=== PATIENT | female | born 1950 | race Caucasian/White ===

== ENCOUNTER 2024-07-05 19:50 | Inpatient (IN) | payer OTHER ==
[~2024-07-05] VITALS: Ht 162.6 cm; Wt 94.1 kg
[2024-07-05] MEDS: AZITHROMYCIN 500MG/250ML 250 ML IV NR (02:45)
[2024-07-05] MEDS: MEROPENEM 1G/100ML IV SCH (05:35)
[2024-07-05] MEDS: VANCOMYCIN 1.25GM PMX (XELLIA) 250 ML IV NR (06:30)
[2024-07-05] MEDS: CEFTRIAXONE 1GM/50ML 50 ML IV ONE (21:00)
[2024-07-05] MEDS: SODIUM CHLORIDE 0.9% 1000ML BAG (SEPSIS BOLUS) IV ONE (21:00)
[2024-07-05 21:06] LABS: CHLORIDE 106 mEq/L (98-107); POTASSIUM 4.7 mEq/L (3.5-5.1); SODIUM 136 mEq/L (136-145)
[2024-07-05 21:07] LABS: CALCIUM 8.6 mg/dL (8.7-10.4); CARBON DIOXIDE 23 mEq/L (21-32)
[2024-07-05 21:11] LABS: HEMATOCRIT. 36.8 % (36.0-48.0); HEMOGLOBIN. 11.9 g/dL (12.0-16.0); MEAN CORPUSCULAR HEMOGLOBIN 30.1 pg (28.0-32.0); MEAN CORPUSCULAR HGB CONC 32.4 g/dL (31.0-37.0); MEAN CORPUSCULAR VOLUME 92.8 fL (81.0-99.0); MEAN PLATELET VOLUME 9.2 fl (7.4-10.4); PLATELET 272 x1000/uL (130-400); RED BLOOD CELL COUNT 3.97 mill/uL (4.2-5.4); RED CELL DISTRIBUTION WIDTH 17.7 % (11.6-14.6); WHITE BLOOD COUNT 20.7 x1000/uL (4.5-11.0)
[2024-07-05 21:12] LABS: CREATININE 1.3 mg/dL (0.6-1.0); DIFFERENTIAL COMMENT 1; GLUCOSE 269 mg/dL (70-105); UREA NITROGEN BLOOD 32 mg/dL (9-23)
[2024-07-05 21:14] LABS: ALANINE AMINOTRANSFERASE 21 IU/L (10-49); ALBUMIN 3.8 g/dL (3.2-4.8); ASPARTATE AMINOTRANSFERASE 30 IU/L (<34); BILIRUBIN TOTAL 0.7 mg/dL (0.1-1.0); PROTEIN TOTAL 7.1 g/dL (6.0-8.3)
[2024-07-05 21:19] LABS: PROTHROMBIN TIME 10.9 sec (9.6-11.0)
[2024-07-05 21:23] LABS: TROPONIN I HIGH SENSITIVITY 748 ng/L (3.0-34)
[2024-07-05 21:37] VITALS: RESP 27
[2024-07-05] MEDS ORDERED: ZOLPIDEM TARTRATE 5MG TABLET PO PRN (22:15)
[2024-07-05] MEDS ORDERED: ONDANSETRON HCL 4MG/2ML INJ IV PRN (22:15)
[2024-07-05] MEDS ORDERED: MAGNESIUM/ALUMINUM HYDROXIDE/SIMETHICONE 30ML UDC PO PRN (22:15)
[2024-07-05] MEDS ORDERED: GUAIFENESIN 200MG/10ML SUGAR FREE UDC PO PRN (22:15)
[2024-07-05] MEDS ORDERED: NITROGLYCERIN 0.4MG TABLET SL SL PRN (22:15)
[2024-07-05] MEDS ORDERED: MEROPENEM 1,000 MG in SODIUM CHLORIDE 0.9% 100 ML IV SCH (22:15)
[2024-07-05] MEDS ORDERED: IPRATROPIUM/ALBUTEROL 0.5-3(2.5)MG/3ML NEB NEB PRN (22:15)
[2024-07-05 22:50] LABS: BG BASE EXCESS -1.6 mmol/L (-2.0-3.0); BG CARBOXYHEMOGLOBIN 0.4 % (0.5-1.5); BG DEOXYHEMOGLOBIN 1.8 % (0.0-5.0); BG FRACTION INSPIRED OXYGEN 40; BG HCO3 ACT 22.4 mmol/L (21.0-28.0); BG METHEMOGLOBIN 0.3 % (0.5-1.5); BG OXYGEN SATURATION 98.2 % (94.0-98.0); BG OXYHEMOGLOBIN 97.5 % (94.0-98.0); BG PCO2 35.7 mmHg (32.0-45.0); BG PH 7.416 (7.350-7.450); BG PO2 112.3 mmHg (83.0-108.0); BG SAMPLE SITE RIGHT RADIAL; BG TOTAL HEMOGLOBIN 11.9 g/dL (12.0-16.0); BG VENT MODE MASK - BIPAP
[2024-07-05 22:54] LABS: IRON 42 ug/dL (50-170); TRIGLYCERIDE 173 mg/dL (0-150)
[2024-07-05 22:55] LABS: LDL CHOLESTEROL 58 mg/dL (5-100)
[2024-07-05 22:56] LABS: CHOLESTEROL 117 mg/dL (<200); HDL CHOLESTEROL 31 mg/dL (>65)
[2024-07-05 22:57] LABS: TOTAL IRON BINDING CAPACITY 520 ug/dl (250-425)
[2024-07-05 22:59] LABS: THYROID STIMULATING HORMONE 2.84 uIU/mL (0.55-4.78)
[2024-07-05 23:00] LABS: ANISOCYTOSIS 1+; PLATELET ESTIMATE NORMAL
[2024-07-05 23:02] LABS: FOLIC ACID (FOLATE) SERUM 15.06 ng/mL (>5.38); VITAMIN B12 SERUM 837 pg/mL (211-911)
[2024-07-05] MEDS: AZITHROMYCIN 500MG/250ML 250 ML IV ONE (23:32)
[2024-07-06] VITALS (14 sets, daily range): BP systolic 87–151; BP diastolic 26–86; PULSE 60–94; RESP 20–34; TEMP 36.6696–39.33648; O2SAT 93–100
[2024-07-06] MEDS: FUROSEMIDE 40MG/4ML VIAL IVP ONE (01:16)
[2024-07-06 08:27] LABS: CHLORIDE 105 mEq/L (98-107); POTASSIUM 4.8 mEq/L (3.5-5.1); SODIUM 138 mEq/L (136-145)
[2024-07-06 08:28] LABS: CARBON DIOXIDE 22 mEq/L (21-32)
[2024-07-06 08:29] LABS: CREATINE KINASE MB FRACTION 9.4 ng/mL (0.5-3.6)
[2024-07-06 08:33] LABS: CREATININE 1.4 mg/dL (0.6-1.0); GLUCOSE 234 mg/dL (70-105); UREA NITROGEN BLOOD 30 mg/dL (9-23)
[2024-07-06 08:35] LABS: ALANINE AMINOTRANSFERASE 21 IU/L (10-49); ASPARTATE AMINOTRANSFERASE 35 IU/L (<34); BILIRUBIN TOTAL 0.5 mg/dL (0.1-1.0); PHOSPHORUS 4.7 mg/dL (2.5-4.9); PROTEIN TOTAL 7.4 g/dL (6.0-8.3)
[2024-07-06 08:37] LABS: BASOPHILS % 1.3 % (0.0-2.0); EOSINOPHILS % 0.1 % (0.0-5.0); HEMATOCRIT. 39.9 % (36.0-48.0); HEMOGLOBIN. 12.4 g/dL (12.0-16.0); LYMPHOCYTES % 8.9 % (20.0-50.0); MEAN CORPUSCULAR HGB CONC 31.1 g/dL (31.0-37.0); MEAN CORPUSCULAR VOLUME 96.5 fL (81.0-99.0); MONOCYTES % 6.5 % (2.0-8.0); NEUTROPHILS % 83.2 % (40.0-76.0); RED BLOOD CELL COUNT 4.13 mill/uL (4.2-5.4); RED CELL DISTRIBUTION WIDTH 18.5 % (11.6-14.6); WHITE BLOOD COUNT 20.8 x1000/uL (4.5-11.0)
[2024-07-06 08:43] LABS: DIFFERENTIAL COMMENT 1
[2024-07-06] MEDS: LACTATED RINGERS 1,000 ML IV SCH (09:39)
[2024-07-06] MEDS: ENOXAPARIN 40MG/0.4ML SYR SUBCUT SCH (09:40)
[2024-07-06] MEDS: MEROPENEM 1G/100ML IV SCH (09:40)
[2024-07-06] MEDS: PANTOPRAZOLE SODIUM 40 MG/VIAL IV SCH (09:40)
[2024-07-06] MEDS: ASPIRIN 325MG EC TABLET PO SCH (09:40)
[2024-07-06 10:34] LABS: MEAN PLATELET VOLUME 9.2 fl (7.4-10.4); PLATELET 262 x1000/uL (130-400)
[2024-07-06 12:16] LABS: HEPATITIS B SURFACE ANTIGEN NEGATIVE (Negative)
[2024-07-06] MEDS: INSULIN GLARGINE 100 UNITS/ML SUBCUT SCH (12:22)
[2024-07-06] MEDS: INSULIN LISPRO 100 UNITS/ML SUBCUT SCH ×2 (12:22→12:30)
[2024-07-06] MEDS: BLOOD SUGAR DIAGNOSTIC STRIP TEST SCH (12:23)
[2024-07-06 12:37] LABS: HEPATITIS C AB NON REACTIVE (Neg) (Negative)
[2024-07-06 16:39] LABS: CREATINE KINASE MB FRACTION 3.8 ng/mL (0.5-3.6)
[2024-07-06] MEDS: ENOXAPARIN 100MG/ML SYR SUBCUT SCH (18:08)
[2024-07-06] MEDS: ACETAMINOPHEN 325MG TABLET PO PRN (21:45)
[2024-07-07] VITALS (15 sets, daily range): BP systolic 118–148; BP diastolic 44–98; PULSE 76–90; RESP 18–51; TEMP 36.61404–38.50308; O2SAT 95–100
[2024-07-07] MEDS: VANCOMYCIN 750MG/150ML (BAXTER) IV SCH (05:32)
[2024-07-07] MEDS: LIDOCAINE HCL 1% 10 MG/ML 10ML VIAL ONE (08:04)
[2024-07-07] MEDS: LACTULOSE 20G/30ML UDC PO SCH (11:18)
[2024-07-07] MEDS: ATORVASTATIN CALCIUM 20MG TABLET PO SCH (21:16)
[2024-07-07] MEDS: METOPROLOL TARTRATE 25MG TABLET PO SCH (21:19)
[2024-07-08] VITALS (12 sets, daily range): BP systolic 122–164; BP diastolic 58–108; PULSE 68–94; RESP 19–38; TEMP 36.6696–37.39188; O2SAT 90–100
[2024-07-08 07:24] LABS: CLARITY URINE CLEAR (CLEAR); COLOR URINE YELLOW (YELLOW); GLUCOSE URINE NEGATIVE (NEGATIVE); KETONES URINE NEGATIVE (NEGATIVE); LEUKOCYTE ESTERASE URINE NEGATIVE (NEGATIVE); NITRITE URINE NEGATIVE (NEGATIVE); OCCULT BLOOD URINE TRACE (NEGATIVE); PH URINE 5.5 (4.5-8.0); PROTEIN URINE 1+ (NEGATIVE); UROBILINOGEN URINE 0.2 E.U./dL (0.2-1.0)
[2024-07-08 07:48] LABS: *AMPHETAMINES SCREEN URINE NEGATIVE (NEGATIVE); *BARBITURATES SCREEN URINE NEGATIVE (NEGATIVE); *BENZODIAZEPINES SCREEN URINE NEGATIVE (NEGATIVE); *COCAINE SCREEN URINE NEGATIVE (NEGATIVE); CANNABINOID URINE SCREEN NEGATIVE (NEGATIVE); ECSTASY MDMA SCREEN URINE NEGATIVE (NEGATIVE); METHADONE URINE SCREEN NEGATIVE (NEGATIVE); OPIATES URINE SCREEN NEGATIVE (NEGATIVE); PHENCYCLIDINE URINE SCREEN NEGATIVE (NEGATIVE)
[2024-07-08 08:08] LABS: BASOPHILS % 0.9 % (0.0-2.0); EOSINOPHILS % 1.7 % (0.0-5.0); HEMATOCRIT. 33.4 % (36.0-48.0); HEMOGLOBIN. 10.4 g/dL (12.0-16.0); LYMPHOCYTES % 19.9 % (20.0-50.0); MEAN CORPUSCULAR HEMOGLOBIN 29.7 pg (28.0-32.0); MEAN CORPUSCULAR HGB CONC 31.3 g/dL (31.0-37.0); MEAN CORPUSCULAR VOLUME 94.8 fL (81.0-99.0); MEAN PLATELET VOLUME 9.8 fl (7.4-10.4); MONOCYTES % 10.1 % (2.0-8.0); NEUTROPHILS % 67.4 % (40.0-76.0); PLATELET 217 x1000/uL (130-400); RED BLOOD CELL COUNT 3.52 mill/uL (4.2-5.4); RED CELL DISTRIBUTION WIDTH 17.8 % (11.6-14.6)
[2024-07-08 08:20] LABS: CALCIUM 8.2 mg/dL (8.7-10.4); POTASSIUM 4.6 mEq/L (3.5-5.1)
[2024-07-08 08:26] LABS: CREATININE 1.1 mg/dL (0.6-1.0); VANCOMYCIN TROUGH 13.8 ug/mL (5.0-10.0)
[2024-07-08 08:26] LABS: BACTERIA URINE NONE SEEN; RBC URINE 0-2 /hpf (0-2); SQUAMOUS EPITHELIAL CELL URINE 1+ /lpf (RARE/1+); WBC URINE 0-2 /hpf (0-2); YEAST URINE NONE SEEN
[2024-07-08] MEDS: ASPIRIN 81MG EC TABLET PO SCH (09:21)
[2024-07-08] MEDS: FAMOTIDINE 20MG/2ML VIAL IV SCH (09:26)
[2024-07-08 11:09] LABS: BG CARBOXYHEMOGLOBIN 0.5 % (0.5-1.5); BG DEOXYHEMOGLOBIN 0.7 % (0.0-5.0); BG FRACTION INSPIRED OXYGEN 40; BG HCO3 ACT 22.2 mmol/L (21.0-28.0); BG METHEMOGLOBIN 0.1 % (0.5-1.5); BG OXYGEN SATURATION 99.3 % (94.0-98.0); BG OXYHEMOGLOBIN 98.7 % (94.0-98.0); BG PCO2 40.4 mmHg (32.0-45.0); BG PH 7.358 (7.350-7.450); BG PO2 181.7 mmHg (83.0-108.0); BG SAMPLE SITE RIGHT RADIAL; BG TOTAL HEMOGLOBIN 13.6 g/dL (12.0-16.0); BG VENT MODE MASK - CPAP
[2024-07-08] MEDS: MEROPENEM 1G/100ML IV SCH (17:57)
[2024-07-08] MEDS: AMLODIPINE 5MG TABLET PO SCH (22:33)
[2024-07-09] VITALS (72 sets, daily range): BP systolic 73–173; BP diastolic 40–126; PULSE 47–123; RESP 11–42; TEMP 36.83628–37.61412; O2SAT 83–100
[2024-07-09] MEDS: VANCOMYCIN 750MG/150ML (BAXTER) IV SCH (00:30)
[2024-07-09] MEDS: LORAZEPAM 2MG/ML INJ IV NR (02:37)
[2024-07-09] MEDS ORDERED: LORAZEPAM 2MG/ML INJ IV NR (03:15)
[2024-07-09 03:27] LABS: BG BASE EXCESS -7.6 mmol/L (-2.0-3.0); BG CARBOXYHEMOGLOBIN 0.3 % (0.5-1.5); BG DEOXYHEMOGLOBIN 10.8 % (0.0-5.0); BG FRACTION INSPIRED OXYGEN 44; BG HCO3 ACT 20.8 mmol/L (21.0-28.0); BG OXYGEN SATURATION 89.2 % (94.0-98.0); BG OXYHEMOGLOBIN 88.9 % (94.0-98.0); BG PCO2 54.6 mmHg (32.0-45.0); BG PH 7.198 (7.350-7.450); BG PO2 65.4 mmHg (83.0-108.0); BG SAMPLE SITE RIGHT BRACHIAL; BG TOTAL HEMOGLOBIN 12.2 g/dL (12.0-16.0); BG VENT MODE NASAL CANNULA
[2024-07-09] MEDS ORDERED: LORAZEPAM 2MG/ML INJ IM NR (03:30)
[2024-07-09 05:40] LABS: CALCIUM 8.9 mg/dL (8.7-10.4); POTASSIUM 4.5 mEq/L (3.5-5.1)
[2024-07-09 06:21] LABS: BASOPHILS % 0.4 % (0.0-2.0); EOSINOPHILS % 0.3 % (0.0-5.0); HEMATOCRIT. 31.8 % (36.0-48.0); HEMOGLOBIN. 10.2 g/dL (12.0-16.0); LYMPHOCYTES % 8.4 % (20.0-50.0); MEAN CORPUSCULAR HGB CONC 32.1 g/dL (31.0-37.0); MEAN CORPUSCULAR VOLUME 93.5 fL (81.0-99.0); MEAN PLATELET VOLUME 9.5 fl (7.4-10.4); NEUTROPHILS % 84.9 % (40.0-76.0); PLATELET 230 x1000/uL (130-400); RED BLOOD CELL COUNT 3.41 mill/uL (4.2-5.4); RED CELL DISTRIBUTION WIDTH 17.7 % (11.6-14.6); WHITE BLOOD COUNT 12.1 x1000/uL (4.5-11.0)
[2024-07-09 08:50] LABS: BG BASE EXCESS -1.9 mmol/L (-2.0-3.0); BG CARBOXYHEMOGLOBIN 0.3 % (0.5-1.5); BG DEOXYHEMOGLOBIN 0.8 % (0.0-5.0); BG FRACTION INSPIRED OXYGEN 60; BG HCO3 ACT 24.5 mmol/L (21.0-28.0); BG OXYGEN SATURATION 99.2 % (94.0-98.0); BG OXYHEMOGLOBIN 98.9 % (94.0-98.0); BG PCO2 48.7 mmHg (32.0-45.0); BG PH 7.319 (7.350-7.450); BG PO2 149.5 mmHg (83.0-108.0); BG SAMPLE SITE RIGHT RADIAL; BG TOTAL HEMOGLOBIN 10.8 g/dL (12.0-16.0); BG VENT MODE MASK - BIPAP
[2024-07-09] MEDS ORDERED: DEXMEDETOMIDINE 400 MCG/100 ML 100 ML IV PRN (11:30)
[2024-07-09] MEDS: PROPOFOL 10MG/ML 100ML 100 ML IV PRN (11:47)
[2024-07-09 12:03] LABS: AMMONIA 49 uMol/L (<32)
[2024-07-09 12:57] LABS: BG BASE EXCESS 0.4 mmol/L (-2.0-3.0); BG CARBOXYHEMOGLOBIN 0.1 % (0.5-1.5); BG FRACTION INSPIRED OXYGEN 40; BG HCO3 ACT 26.6 mmol/L (21.0-28.0); BG METHEMOGLOBIN 0.3 % (0.5-1.5); BG OXYHEMOGLOBIN 95.6 % (94.0-98.0); BG PCO2 49.9 mmHg (32.0-45.0); BG PH 7.345 (7.350-7.450); BG PO2 80.2 mmHg (83.0-108.0); BG SAMPLE SITE LEFT RADIAL; BG TOTAL HEMOGLOBIN 11.5 g/dL (12.0-16.0); BG VENT MODE VENT - AC
[2024-07-09] MEDS ORDERED: NOREPINEPHRINE 8 MG in DEXT 5% WATER 242 ML IV PRN (13:15)
[2024-07-09] MEDS: NOREPINEPHRINE 8MG/250ML PMX 250 ML IV PRN (13:48)
[2024-07-09] MEDS: IPRATROPIUM/ALBUTEROL 0.5-3(2.5)MG/3ML NEB HHN SCH (15:22)
[2024-07-09] MEDS: FAMOTIDINE 20MG/2ML VIAL IV SCH (21:21)
[2024-07-09] MEDS: METOPROLOL TARTRATE 25MG TABLET NG SCH (21:22)
[2024-07-10] VITALS (77 sets, daily range): BP systolic 93–142; BP diastolic 43–87; PULSE 45–109; RESP 17–27; TEMP 36.9474–37.16964; O2SAT 94–100
[2024-07-10] MEDS: INSULIN LISPRO 100 UNITS/ML SUBCUT SCH ×2
[2024-07-10] MEDS: BLOOD SUGAR DIAGNOSTIC STRIP TEST SCH (00:27)
[2024-07-10] MEDS: DEXTROSE 50% WATER 50ML SYRINGE IV PRN (00:34)
[2024-07-10 03:30] LABS: CHLORIDE 111 mEq/L (98-107); POTASSIUM 3.9 mEq/L (3.5-5.1); SODIUM 143 mEq/L (136-145)
[2024-07-10 03:31] LABS: BASOPHILS % 0.6 % (0.0-2.0); CALCIUM 8.1 mg/dL (8.7-10.4); CARBON DIOXIDE 27 mEq/L (21-32); EOSINOPHILS % 0.9 % (0.0-5.0); HEMATOCRIT. 29.4 % (36.0-48.0); HEMOGLOBIN. 9.4 g/dL (12.0-16.0); LYMPHOCYTES % 25.6 % (20.0-50.0); MEAN CORPUSCULAR HEMOGLOBIN 29.8 pg (28.0-32.0); MEAN CORPUSCULAR HGB CONC 32.1 g/dL (31.0-37.0); MEAN CORPUSCULAR VOLUME 92.8 fL (81.0-99.0); MEAN PLATELET VOLUME 9.3 fl (7.4-10.4); MONOCYTES % 10.6 % (2.0-8.0); NEUTROPHILS % 62.3 % (40.0-76.0); PLATELET 217 x1000/uL (130-400); RED BLOOD CELL COUNT 3.17 mill/uL (4.2-5.4); RED CELL DISTRIBUTION WIDTH 17.2 % (11.6-14.6); WHITE BLOOD COUNT 8.6 x1000/uL (4.5-11.0)
[2024-07-10 03:36] LABS: CREATININE 0.9 mg/dL (0.6-1.0); GLUCOSE 83 mg/dL (70-105); TRIGLYCERIDE 179 mg/dL (0-150); UREA NITROGEN BLOOD 16 mg/dL (9-23)
[2024-07-10 05:03] LABS: TROPONIN I HIGH SENSITIVITY 386 ng/L (3.0-34)
[2024-07-10 09:04] LABS: BG BASE EXCESS 2.8 mmol/L (-2.0-3.0); BG CARBOXYHEMOGLOBIN 0.2 % (0.5-1.5); BG DEOXYHEMOGLOBIN 1.9 % (0.0-5.0); BG FRACTION INSPIRED OXYGEN 40; BG HCO3 ACT 27.1 mmol/L (21.0-28.0); BG METHEMOGLOBIN 0.3 % (0.5-1.5); BG OXYGEN SATURATION 98.1 % (94.0-98.0); BG OXYHEMOGLOBIN 97.6 % (94.0-98.0); BG PCO2 40.7 mmHg (32.0-45.0); BG PH 7.442 (7.350-7.450); BG PO2 109.2 mmHg (83.0-108.0); BG SAMPLE SITE RIGHT RADIAL; BG TOTAL HEMOGLOBIN 10.1 g/dL (12.0-16.0); BG VENT MODE VENT - AC
[2024-07-10] MEDS: AMLODIPINE 5MG TABLET NG SCH (10:01)
[2024-07-10] MEDS: PROPOFOL 10MG/ML 100ML 100 ML IV SCH (15:02)
[2024-07-10] MEDS: ATORVASTATIN CALCIUM 20MG TABLET NG SCH (21:24)
[2024-07-11] VITALS (94 sets, daily range): BP systolic 66–153; BP diastolic 37–117; PULSE 66–144; RESP 16–23; TEMP 36.6696–37.00296; O2SAT 92–100
[2024-07-11 10:07] LABS: BG CARBOXYHEMOGLOBIN 0.5 % (0.5-1.5); BG DEOXYHEMOGLOBIN 0.9 % (0.0-5.0); BG FRACTION INSPIRED OXYGEN 40; BG HCO3 ACT 28.3 mmol/L (21.0-28.0); BG OXYGEN SATURATION 99.1 % (94.0-98.0); BG OXYHEMOGLOBIN 98.6 % (94.0-98.0); BG PCO2 46.6 mmHg (32.0-45.0); BG PH 7.401 (7.350-7.450); BG SAMPLE SITE RIGHT RADIAL; BG TOTAL HEMOGLOBIN 11.2 g/dL (12.0-16.0); BG TOTAL RESPIRATORY RATE 20 b/min; BG VENT MODE VENT - AC
[2024-07-11] MEDS: PROPOFOL 10MG/ML 100ML 100 ML IV PRN (18:17)
[2024-07-12] VITALS (89 sets, daily range): BP systolic 108–158; BP diastolic 50–102; PULSE 61–139; RESP 8–23; TEMP 36.50292–37.33632; O2SAT 93–100
[2024-07-12 05:41] LABS: BASOPHILS % 0.7 % (0.0-2.0); EOSINOPHILS % 1.8 % (0.0-5.0); HEMATOCRIT. 31.7 % (36.0-48.0); LYMPHOCYTES % 16.9 % (20.0-50.0); MEAN CORPUSCULAR HEMOGLOBIN 29.4 pg (28.0-32.0); MEAN CORPUSCULAR HGB CONC 31.5 g/dL (31.0-37.0); MEAN CORPUSCULAR VOLUME 93.3 fL (81.0-99.0); MEAN PLATELET VOLUME 9.6 fl (7.4-10.4); MONOCYTES % 5.2 % (2.0-8.0); NEUTROPHILS % 75.4 % (40.0-76.0); PLATELET 298 x1000/uL (130-400); RED CELL DISTRIBUTION WIDTH 17.9 % (11.6-14.6); WHITE BLOOD COUNT 11.7 x1000/uL (4.5-11.0)
[2024-07-12 08:24] LABS: CALCIUM 8.3 mg/dL (8.7-10.4)
[2024-07-12 08:29] LABS: TROPONIN I HIGH SENSITIVITY 117 ng/L (3.0-34)
[2024-07-12] MEDS: AMLODIPINE 2.5MG TABLET NG SCH (09:14)
[2024-07-12] MEDS: ASPIRIN 81MG TABLET PO SCH (09:14)
[2024-07-12 09:23] LABS: BG BASE EXCESS 3.5 mmol/L (-2.0-3.0); BG CARBOXYHEMOGLOBIN 0.1 % (0.5-1.5); BG DEOXYHEMOGLOBIN 3.5 % (0.0-5.0); BG FRACTION INSPIRED OXYGEN 40; BG METHEMOGLOBIN 0.3 % (0.5-1.5); BG OXYGEN SATURATION 96.5 % (94.0-98.0); BG OXYHEMOGLOBIN 96.1 % (94.0-98.0); BG PCO2 42.2 mmHg (32.0-45.0); BG PO2 87.8 mmHg (83.0-108.0); BG SAMPLE SITE RIGHT RADIAL; BG TOTAL HEMOGLOBIN 10.9 g/dL (12.0-16.0); BG VENT MODE VENT - AC
[2024-07-12 12:48] LABS: BG BASE EXCESS 3.1 mmol/L (-2.0-3.0); BG CARBOXYHEMOGLOBIN 0.3 % (0.5-1.5); BG DEOXYHEMOGLOBIN 0.6 % (0.0-5.0); BG FRACTION INSPIRED OXYGEN 40; BG HCO3 ACT 25.2 mmol/L (21.0-28.0); BG METHEMOGLOBIN 0.3 % (0.5-1.5); BG OXYGEN SATURATION 99.4 % (94.0-98.0); BG OXYHEMOGLOBIN 98.8 % (94.0-98.0); BG PCO2 30.4 mmHg (32.0-45.0); BG PH 7.536 (7.350-7.450); BG PO2 176.4 mmHg (83.0-108.0); BG SAMPLE SITE RIGHT RADIAL; BG TOTAL HEMOGLOBIN 11.8 g/dL (12.0-16.0); BG VENT MODE VENT - CPAP
[2024-07-12 16:21] LABS: BG BASE EXCESS 6.1 mmol/L (-2.0-3.0); BG DEOXYHEMOGLOBIN 1.4 % (0.0-5.0); BG FRACTION INSPIRED OXYGEN 40; BG HCO3 ACT 30.8 mmol/L (21.0-28.0); BG METHEMOGLOBIN 0.3 % (0.5-1.5); BG OXYGEN SATURATION 98.6 % (94.0-98.0); BG OXYHEMOGLOBIN 98.3 % (94.0-98.0); BG PCO2 45.7 mmHg (32.0-45.0); BG PH 7.447 (7.350-7.450); BG PO2 139.1 mmHg (83.0-108.0); BG SAMPLE SITE RIGHT RADIAL; BG TOTAL HEMOGLOBIN 10.6 g/dL (12.0-16.0); BG VENT MODE VENT - CPAP
[2024-07-12] MEDS ORDERED: DEXMEDETOMIDINE 400 MCG/100 ML 100 ML IV PRN (18:00)
[2024-07-12] MEDS: DEXMEDETOMIDINE 400 MCG/100 ML 100 ML IV PRN (19:00)
[2024-07-13] VITALS (103 sets, daily range): BP systolic 82–163; BP diastolic 53–102; PULSE 53–127; RESP 9–32; TEMP 36.3918–36.78072; O2SAT 84–100
[2024-07-13] MEDS: CLONIDINE 0.1MG TABLET PO PRN (00:50)
[2024-07-13 05:16] LABS: BASOPHILS % 1.2 % (0.0-2.0); EOSINOPHILS % 1.7 % (0.0-5.0); HEMATOCRIT. 35.1 % (36.0-48.0); HEMOGLOBIN. 11.3 g/dL (12.0-16.0); LYMPHOCYTES % 17.5 % (20.0-50.0); MEAN CORPUSCULAR HEMOGLOBIN 30.1 pg (28.0-32.0); MEAN CORPUSCULAR HGB CONC 32.3 g/dL (31.0-37.0); MEAN CORPUSCULAR VOLUME 93.1 fL (81.0-99.0); MEAN PLATELET VOLUME 9.4 fl (7.4-10.4); NEUTROPHILS % 74.6 % (40.0-76.0); PLATELET 329 x1000/uL (130-400); RED BLOOD CELL COUNT 3.77 mill/uL (4.2-5.4); RED CELL DISTRIBUTION WIDTH 17.7 % (11.6-14.6); WHITE BLOOD COUNT 9.2 x1000/uL (4.5-11.0)
[2024-07-13 05:19] LABS: CARBON DIOXIDE 29 mEq/L (21-32); CHLORIDE 109 mEq/L (98-107); POTASSIUM 4.6 mEq/L (3.5-5.1); SODIUM 144 mEq/L (136-145)
[2024-07-13 05:21] LABS: CALCIUM 8.7 mg/dL (8.7-10.4)
[2024-07-13 05:25] LABS: CREATININE 0.9 mg/dL (0.6-1.0); GLUCOSE 218 mg/dL (70-105); UREA NITROGEN BLOOD 18 mg/dL (9-23)
[2024-07-13 05:44] LABS: TROPONIN I HIGH SENSITIVITY 72 ng/L (3.0-34)
[2024-07-13 10:11] LABS: BG BASE EXCESS 5.1 mmol/L (-2.0-3.0); BG CARBOXYHEMOGLOBIN 0.3 % (0.5-1.5); BG DEOXYHEMOGLOBIN 2.1 % (0.0-5.0); BG FRACTION INSPIRED OXYGEN 40; BG HCO3 ACT 30.2 mmol/L (21.0-28.0); BG METHEMOGLOBIN 0.3 % (0.5-1.5); BG OXYGEN SATURATION 97.9 % (94.0-98.0); BG OXYHEMOGLOBIN 97.3 % (94.0-98.0); BG PCO2 46.7 mmHg (32.0-45.0); BG PH 7.429 (7.350-7.450); BG SAMPLE SITE RIGHT RADIAL; BG TOTAL HEMOGLOBIN 12.2 g/dL (12.0-16.0); BG VENT MODE VENT - CPAP
[2024-07-14] VITALS (42 sets, daily range): BP systolic 103–150; BP diastolic 50–125; PULSE 71–112; RESP 15–31; TEMP 36.78072–36.9474; O2SAT 92–99
[2024-07-14 05:46] LABS: BASOPHILS % 0.7 % (0.0-2.0); EOSINOPHILS % 1.8 % (0.0-5.0); HEMATOCRIT. 32.3 % (36.0-48.0); HEMOGLOBIN. 10.6 g/dL (12.0-16.0); LYMPHOCYTES % 11.5 % (20.0-50.0); MEAN CORPUSCULAR HEMOGLOBIN 30.5 pg (28.0-32.0); MEAN CORPUSCULAR HGB CONC 32.7 g/dL (31.0-37.0); MEAN CORPUSCULAR VOLUME 93.2 fL (81.0-99.0); MEAN PLATELET VOLUME 9.8 fl (7.4-10.4); MONOCYTES % 5.4 % (2.0-8.0); NEUTROPHILS % 80.6 % (40.0-76.0); PLATELET 359 x1000/uL (130-400); RED BLOOD CELL COUNT 3.47 mill/uL (4.2-5.4); RED CELL DISTRIBUTION WIDTH 17.3 % (11.6-14.6); WHITE BLOOD COUNT 13.8 x1000/uL (4.5-11.0)
[2024-07-14 05:58] LABS: CHLORIDE 108 mEq/L (98-107); SODIUM 145 mEq/L (136-145)
[2024-07-14 05:59] LABS: CALCIUM 8.9 mg/dL (8.7-10.4); CARBON DIOXIDE 32 mEq/L (21-32)
[2024-07-14 06:04] LABS: CREATININE 0.9 mg/dL (0.6-1.0); GLUCOSE 149 mg/dL (70-105); UREA NITROGEN BLOOD 23 mg/dL (9-23)
[2024-07-14 06:11] LABS: TROPONIN I HIGH SENSITIVITY 39 ng/L (3.0-34)
[2024-07-14] MEDS: ACETAMINOPHEN 325MG TABLET PO PRN (18:54)
[2024-07-15] VITALS: BP 154/56; PULSE 75; RESP 20; TEMP 36.78072; O2SAT 95
[2024-07-15 04:00] VITALS: BP 139/48; PULSE 70; RESP 20; TEMP 36.78072; O2SAT 95
[2024-07-15 08:00] VITALS: BP 160/61; PULSE 78; RESP 18; TEMP 36.114; O2SAT 95
[2024-07-15 12:00] VITALS: BP 145/91; PULSE 95; RESP 22; TEMP 36.33624; O2SAT 95
[2024-07-15 16:00] VITALS: BP 138/79; PULSE 89; RESP 20; TEMP 36.72516; O2SAT 97
[2024-07-15 20:00] VITALS: BP 150/65; PULSE 101; RESP 20; TEMP 38.28084; O2SAT 97
[2024-07-15] MEDS: DOCUSATE SODIUM 100MG CAPSULE PO PRN (20:43)
[2024-07-16] VITALS (10 sets, daily range): BP systolic 124–154; BP diastolic 55–69; PULSE 68–99; RESP 18–20; TEMP 36.00288–37.33632; O2SAT 97–100
[2024-07-16] MEDS: IPRATROPIUM/ALBUTEROL 0.5-3(2.5)MG/3ML NEB HHN PRN (01:47)
[2024-07-16 07:11] LABS: TROPONIN I HIGH SENSITIVITY 26 ng/L (3.0-34)
[2024-07-16 07:16] LABS: CALCIUM 9.1 mg/dL (8.7-10.4); CARBON DIOXIDE 29 mEq/L (21-32); CHLORIDE 107 mEq/L (98-107); POTASSIUM 3.9 mEq/L (3.5-5.1); SODIUM 145 mEq/L (136-145)
[2024-07-16 07:22] LABS: CREATININE 0.8 mg/dL (0.6-1.0); GLUCOSE 69 mg/dL (70-105); UREA NITROGEN BLOOD 22 mg/dL (9-23)
[2024-07-16] MEDS ORDERED: EVOL140P3 SUBCUT (07:42)
[2024-07-16] MEDS ORDERED: ASPI-1406 PO (07:42)
[2024-07-16] MEDS ORDERED: OMEG-221 PO (07:42)
[2024-07-16] MEDS ORDERED: CLOP75TA33 PO (07:42)
[2024-07-16] MEDS ORDERED: METO-411 PO (07:42)
[2024-07-16] MEDS ORDERED: LISI10TA26 PO (07:42)
[2024-07-16] MEDS ORDERED: ATOR40TA70 PO (07:42)
[2024-07-16] MEDS ORDERED: METF-416 PO (07:42)
[2024-07-16 08:48] LABS: BASOPHILS % 0.8 % (0.0-2.0); EOSINOPHILS % 1.6 % (0.0-5.0); HEMATOCRIT. 31.3 % (36.0-48.0); HEMOGLOBIN. 9.9 g/dL (12.0-16.0); LYMPHOCYTES % 15.8 % (20.0-50.0); MEAN CORPUSCULAR HEMOGLOBIN 29.9 pg (28.0-32.0); MEAN CORPUSCULAR HGB CONC 31.8 g/dL (31.0-37.0); MEAN CORPUSCULAR VOLUME 94.2 fL (81.0-99.0); MONOCYTES % 8.5 % (2.0-8.0); NEUTROPHILS % 73.3 % (40.0-76.0); PLATELET 365 x1000/uL (130-400); RED BLOOD CELL COUNT 3.32 mill/uL (4.2-5.4); RED CELL DISTRIBUTION WIDTH 17.7 % (11.6-14.6); WHITE BLOOD COUNT 12.7 x1000/uL (4.5-11.0)
[2024-07-16] MEDS: WATER IV SCH (13:38)
[2024-07-16] MEDS: ACYCLOVIR IV SCH (13:38)
[2024-07-16] MEDS: DEXT 5% IV SCH (13:38)
[2024-07-16] MEDS: IPRATROPIUM/ALBUTEROL 0.5-3(2.5)MG/3ML NEB HHN SCH (14:04)
[2024-07-17] VITALS (10 sets, daily range): BP systolic 109–148; BP diastolic 58–91; PULSE 76–104; RESP 18–20; TEMP 36.16956–36.78072; O2SAT 94–100
[2024-07-18] VITALS (9 sets, daily range): BP systolic 116–139; BP diastolic 62–87; PULSE 75–100; RESP 18–20; TEMP 36.44736–37.16964; O2SAT 95–98
[2024-07-18] MEDS ORDERED: ACYC200O MT (10:42)
[2024-07-18] MEDS ORDERED: LANTUSUD SUBCUT (10:42)
[2024-07-18] MEDS ORDERED: INSLIS SUBCUT (10:42)
[2024-07-18] MEDS: FAMOTIDINE 20MG TABLET PO SCH (19:25)
[2024-07-18] MEDS: ENOXAPARIN 100MG/ML SYR SUBCUT SCH (19:26)
== END 2024-07-18 21:10 | disposition home or self-care (01) | DRG 720 ==
LOC: ER 19:50 → 5EST 21:42 → EDBEDREQ 21:48 → EDBEDREQTM 21:48 → MICUNO 07-09 10:35 → 7WST 07-14 20:06
PROVIDERS: ADMIT Internal Medicine; ATTEND Internal Medicine
PROC: 5A1935Z Respiratory Ventilation, Less than 24 Consecutive Hours (ICD-10-PCS; principal; 2024-07-05)
PROC: 5A1945Z Respiratory Ventilation, 24-96 Consecutive Hours (ICD-10-PCS; 2024-07-09)
PROC: 5A09357 Assistance with Respiratory Ventilation, Less than 24 Consecutive Hours, Continuous Positive Airway Pressure (ICD-10-PCS; 2024-07-09)
PROC: 0BH17EZ Insertion of Endotracheal Airway into Trachea, Via Natural or Artificial Opening (ICD-10-PCS; 2024-07-09)
PROC: 02HV33Z Insertion of Infusion Device into Superior Vena Cava, Percutaneous Approach (ICD-10-PCS; 2024-07-09)
DX: A41.9 Sepsis, unspecified organism (principal); J96.21 Acute and chronic respiratory failure with hypoxia; N17.0 Acute kidney failure with tubular necrosis; I21.4 Non-ST elevation (NSTEMI) myocardial infarction; G92.8 Other toxic encephalopathy; J18.9 Pneumonia, unspecified organism; I48.20 Chronic atrial fibrillation, unspecified; E87.29 Other acidosis; I48.92 Unspecified atrial flutter; M62.82 Rhabdomyolysis; J96.22 Acute and chronic respiratory failure with hypercapnia; I11.0 Hypertensive heart disease with heart failure; I50.9 Heart failure, unspecified; I45.10 Unspecified right bundle-branch block; I25.10 Atherosclerotic heart disease of native coronary artery without angina pectoris; Z20.822 Contact with and (suspected) exposure to COVID-19; Z68.35 Body mass index [BMI] 35.0-35.9, adult; G47.33 Obstructive sleep apnea (adult) (pediatric); Z99.81 Dependence on supplemental oxygen; B02.9 Zoster without complications; D64.9 Anemia, unspecified; E66.9 Obesity, unspecified; E78.1 Pure hyperglyceridemia; R65.20 Severe sepsis without septic shock; Z78.9 Other specified health status; Z79.82 Long term (current) use of aspirin; Z79.899 Other long term (current) drug therapy; Z86.73 Personal history of transient ischemic attack (TIA), and cerebral infarction without residual deficits; Z87.01 Personal history of pneumonia (recurrent); Z87.891 Personal history of nicotine dependence; Z95.1 Presence of aortocoronary bypass graft
CPT/HCPCS: 31500; 36415; 36573; 36600; 71045; 80048; 80053; 80061; 80202; 80305; 81003; 82140; 82375; 82550; 82553; 82607; 82746; 82805; 82962; 83036; 83540; 83550; 83605; 83735; 83880; 84100; 84145; 84443; 84478; 84484; 85025; 85379; 86705; 87070; 87340; 87426; 93005; 93306; 93970; 94003; 94640; 94660; 97162; 97166; 97530; 97535; 99291; C1725; C1893; J0133; J0456; J0696; J1650; J1815; J1940; J2060; J2185; J2470; J2704; J3370; J3490; J7030; J7060; Q9957; A5200